=== PATIENT | female | born 1965 | race African-American/Black ===

== ENCOUNTER 2017-05-28 02:34 | Emergency (ER) | payer MEDICAID ==
[~2017-05-28] VITALS: Ht 165.1 cm; Wt 68.0 kg
[~2017-05-28 02:34] MED LIST: ALBU6.7H IH; ATEN-42 PO; ATOR10TA PO; DIGO250T16 PO; FURO-152 PO; HYDR-3927 PO; WARF4TAB39 PO
[2017-05-28 10:18] LABS: BASOPHILS % 1.2 % (0.0-2.0); EOSINOPHILS % 2.2 % (0.0-5.0); HEMATOCRIT. 41.5 % (36.0-48.0); HEMOGLOBIN. 13.3 g/dL (12.0-16.0); LYMPHOCYTES % 41.7 % (20.0-50.0); MEAN CORPUSCULAR HEMOGLOBIN 27.1 pg (28.0-32.0); MEAN CORPUSCULAR VOLUME 84.5 fL (81.0-99.0); MEAN PLATELET VOLUME 8.7 fl (7.4-10.4); MONOCYTES % 11.7 % (2.0-8.0); NEUTROPHILS % 43.2 % (40.0-76.0); PLATELET 211 x1000/uL (130-400); RED BLOOD CELL COUNT 4.91 mill/uL (4.2-5.4)
[2017-05-28 10:27] LABS: INR 1.5; PROTHROMBIN TIME 15.3 sec (9.4-11.6)
[2017-05-28 10:36] LABS: CARBON DIOXIDE 26 mEq/L (21-32); CHLORIDE 109 mEq/L (98-107); TROPONIN I 0.04 ng/mL (0.00-0.04)
[2017-05-28] MEDS ORDERED: IPRATROPIUM BROMIDE (0.02%) 0.5MG/2.5ML NEB HHN STA (10:43)
[2017-05-28] MEDS ORDERED: ACETAMINOPHEN 325MG TABLET PO ONE (12:00)
[2017-05-28] MEDS ORDERED: NITROGLYCERIN 0.4MG TABLET SL SL ONE (13:00)
[2017-05-28] MEDS ORDERED: IBUPROFEN 600MG TABLET PO ONE (13:45)
[2017-05-28 13:55] VITALS: BP 122/76
== END 2017-05-28 14:03 | disposition home or self-care (01) ==
LOC: ER 02:34
DX: J06.9 Acute upper respiratory infection, unspecified (principal); J45.901 Unspecified asthma with (acute) exacerbation; R07.89 Other chest pain; I48.91 Unspecified atrial fibrillation; I50.9 Heart failure, unspecified; Z79.01 Long term (current) use of anticoagulants; Z95.2 Presence of prosthetic heart valve; Z88.6 Allergy status to analgesic agent; Z88.5 Allergy status to narcotic agent; Z88.0 Allergy status to penicillin
CPT/HCPCS: 36415; 71045; 80053; 83690; 83880; 84484; 85025; 85610; 85730; 87804; 93005; 99285; Z7610

== ENCOUNTER 2017-12-27 23:17 | Emergency (ER) | payer MEDICAID ==
[~2017-12-27] VITALS: Ht 167.6 cm; Wt 68.0 kg
[~2017-12-27 23:17] MED LIST changes: -ATEN-42 PO; +DIGO125T82 PO; -DIGO250T16 PO; +WARF-53 PO; -WARF4TAB39 PO
[2017-12-28 01:42] LABS: BASOPHILS % 0.5 % (0.0-2.0); EOSINOPHILS % 0.7 % (0.0-5.0); HEMATOCRIT. 37.2 % (36.0-48.0); HEMOGLOBIN. 11.6 g/dL (12.0-16.0); LYMPHOCYTES % 32.2 % (20.0-50.0); MEAN CORPUSCULAR HEMOGLOBIN 23.6 pg (28.0-32.0); MEAN PLATELET VOLUME 8.2 fl (7.4-10.4); NEUTROPHILS % 52.6 % (40.0-76.0); PLATELET 251 x1000/uL (130-400); RED BLOOD CELL COUNT 4.89 mill/uL (4.2-5.4); RED CELL DISTRIBUTION WIDTH 19.7 % (11.6-14.6)
[2017-12-28 01:47] LABS: CHLORIDE 108 mEq/L (98-107)
[2017-12-28 04:05] VITALS: BP 126/71
== END 2017-12-28 04:34 | disposition home or self-care (01) ==
LOC: ER 12-28 03:01
DX: R07.9 Chest pain, unspecified (principal); M54.2 Cervicalgia; J45.909 Unspecified asthma, uncomplicated; I51.9 Heart disease, unspecified; Z88.5 Allergy status to narcotic agent; Z88.1 Allergy status to other antibiotic agents; Z88.8 Allergy status to other drugs, medicaments and biological substances
CPT/HCPCS: 36415; 71045; 80053; 83880; 84484; 85025; 93005; 99285; Z7610

== ENCOUNTER 2018-04-14 00:47 | Inpatient (IN) | payer MEDICAID ==
[~2018-04-14] VITALS: Ht 167.6 cm; Wt 68.0 kg
[2018-04-14] MEDS ORDERED: METHYLPREDNISOLONE SOD SUCC 125 MG/2 ML VIAL IV STA (01:36)
[2018-04-14] MEDS ORDERED: IPRATROPIUM/ALBUTEROL 0.5-3(2.5)MG/3ML NEB HHN ONE (01:45)
[2018-04-14] MEDS ORDERED: LEVOFLOXACIN 750MG PREMIX 150 ML IV ONE (01:45)
[2018-04-14] MEDS ORDERED: MAGNESIUM 2 G PREMIX 50 ML IV ONE (01:45)
[2018-04-14 04:05] LABS: BASOPHILS % 0.8 % (0.0-2.0); EOSINOPHILS % 0.2 % (0.0-5.0); HEMOGLOBIN. 10.9 g/dL (12.0-16.0); LYMPHOCYTES % 33.2 % (20.0-50.0); MEAN CORPUSCULAR HEMOGLOBIN 24.7 pg (28.0-32.0); MEAN CORPUSCULAR VOLUME 79.3 fL (81.0-99.0); MEAN PLATELET VOLUME 8.6 fl (7.4-10.4); MONOCYTES % 12.7 % (2.0-8.0); NEUTROPHILS % 53.1 % (40.0-76.0); PLATELET 232 x1000/uL (130-400); RED BLOOD CELL COUNT 4.42 mill/uL (4.2-5.4)
[2018-04-14 04:06] LABS: CHLORIDE 101 mEq/L (98-107)
[2018-04-14 04:10] LABS: ETHANOL BLOOD < 10 mg/dL
[2018-04-14 04:22] LABS: INR 3.1; PARTIAL THROMBOPLASTIN TIME 33.9 sec (23.4-31.0); PROTHROMBIN TIME 30.4 sec (9.1-11.1)
[2018-04-14] MEDS ORDERED: FUROSEMIDE 20MG/2ML VIAL IVP ONE (05:00)
[2018-04-14] MEDS ORDERED: ASPIRIN 325MG EC TABLET PO ONE (05:00)
[2018-04-14] MEDS ORDERED: IPRATROPIUM/ALBUTEROL 0.5-3(2.5)MG/3ML NEB HHN PRN (10:00)
[2018-04-14 10:33] LABS: CREATINE KINASE MB FRACTION 8.6 ng/mL (0.5-3.6)
[2018-04-14] MEDS: IPRATROPIUM/ALBUTEROL 0.5-3(2.5)MG/3ML NEB HHN SCH (14:00)
[2018-04-14] MEDS: METHYLPREDNISOLONE SOD SUCC 40 MG/ML VIAL IV SCH ×2 (14:17→22:33)
[2018-04-14] MEDS ORDERED: POTASSIUM CHLORIDE 20MEQ TABLET SR PO NR (14:45)
[2018-04-14] MEDS: FUROSEMIDE 40MG/4ML VIAL IVP SCH (19:00)
[2018-04-14] MEDS ORDERED: ACETAMINOPHEN 325MG TABLET ONE (19:08)
[2018-04-14] MEDS ORDERED: ACETAMINOPHEN 325MG TABLET PO PRN (19:15)
[2018-04-14 21:45] VITALS: BP 130/94
[2018-04-14] MEDS: GUAIFENESIN 600MG ER TABLET PO SCH (22:33)
[2018-04-14] MEDS: ATORVASTATIN CALCIUM 10MG TABLET PO SCH (22:33)
[2018-04-14] MEDS ORDERED: ASPI-1159 PO (23:11)
[2018-04-15] VITALS: BP 108/91
[2018-04-15] MEDS ORDERED: DIGOXIN 500MCG/2ML AMP IV NR ×2 (00:15→12:00)
[2018-04-15] MEDS: IPRATROPIUM/ALBUTEROL 0.5-3(2.5)MG/3ML NEB HHN SCH ×3 (01:21→09:09)
[2018-04-15 04:00] VITALS: BP 117/62
[2018-04-15] MEDS: METHYLPREDNISOLONE SOD SUCC 40 MG/ML VIAL IV SCH (06:16)
[2018-04-15 08:12] LABS: BASOPHILS % 0.1 % (0.0-2.0); HEMATOCRIT. 33.7 % (36.0-48.0); HEMOGLOBIN. 10.7 g/dL (12.0-16.0); LYMPHOCYTES % 10.5 % (20.0-50.0); MEAN CORPUSCULAR HEMOGLOBIN 24.7 pg (28.0-32.0); MEAN CORPUSCULAR VOLUME 78.1 fL (81.0-99.0); MONOCYTES % 5.5 % (2.0-8.0); NEUTROPHILS % 83.9 % (40.0-76.0); PLATELET 198 x1000/uL (130-400); RED BLOOD CELL COUNT 4.31 mill/uL (4.2-5.4)
[2018-04-15 08:16] LABS: INR 3.1; PROTHROMBIN TIME 30.8 sec (9.1-11.1)
[2018-04-15 08:50] LABS: CHLORIDE 104 mEq/L (98-107)
[2018-04-15] MEDS: FUROSEMIDE 40MG/4ML VIAL IVP SCH ×2 (09:00→18:04)
[2018-04-15] MEDS: POTASSIUM CHLORIDE 20MEQ TABLET SR PO SCH ×2 (09:59→18:05)
[2018-04-15] MEDS: GUAIFENESIN 600MG ER TABLET PO SCH ×2 (09:59→22:24)
[2018-04-15] MEDS: LORATADINE 10MG TABLET PO SCH (12:25)
[2018-04-15] MEDS: FAMOTIDINE 20MG TABLET PO SCH ×2 (12:25→22:24)
[2018-04-15] MEDS: METOPROLOL TARTRATE 25MG TABLET PO SCH ×2 (12:26→21:00)
[2018-04-15] MEDS: IPRATROPIUM BROMIDE (0.02%) 0.5MG/2.5ML NEB HHN SCH ×3 (13:02→21:00)
[2018-04-15] MEDS ORDERED: DIGOXIN 500MCG/2ML AMP IV PRN (15:00)
[2018-04-15] MEDS ORDERED: PREDNISONE 20MG TABLET PO SCH (17:00)
[2018-04-15] MEDS ORDERED: WARFARIN SODIUM 2.5MG TABLET PO SCH (18:00)
[2018-04-15] MEDS: DIGOXIN 250MCG TABLET PO SCH (18:08)
[2018-04-15 20:00] VITALS: BP 106/67
[2018-04-15] MEDS: ATORVASTATIN CALCIUM 10MG TABLET PO SCH (21:00)
[2018-04-16] VITALS: BP 125/93
[2018-04-16 04:00] VITALS: BP 118/88
[2018-04-16] MEDS: IPRATROPIUM BROMIDE (0.02%) 0.5MG/2.5ML NEB HHN SCH ×5 (04:44→20:42)
[2018-04-16 07:30] LABS: INR 2.8
[2018-04-16 07:37] LABS: HEMATOCRIT. 35.7 % (36.0-48.0); HEMOGLOBIN. 11.3 g/dL (12.0-16.0); MEAN CORPUSCULAR VOLUME 78.7 fL (81.0-99.0); PLATELET 203 x1000/uL (130-400); RED BLOOD CELL COUNT 4.54 mill/uL (4.2-5.4); RED CELL DISTRIBUTION WIDTH 20.2 % (11.6-14.6)
[2018-04-16 07:53] LABS: CHLORIDE 102 mEq/L (98-107)
[2018-04-16 08:00] VITALS: BP 135/91
[2018-04-16] MEDS: POTASSIUM CHLORIDE 20MEQ TABLET SR PO SCH ×2 (08:23→17:37)
[2018-04-16] MEDS: GUAIFENESIN 600MG ER TABLET PO SCH ×2 (08:23→20:48)
[2018-04-16] MEDS: LORATADINE 10MG TABLET PO SCH (08:23)
[2018-04-16] MEDS: FAMOTIDINE 20MG TABLET PO SCH ×2 (08:23→20:48)
[2018-04-16] MEDS: METHYLPREDNISOLONE SOD SUCC 40 MG/ML VIAL IV SCH (08:24)
[2018-04-16] MEDS: METOPROLOL TARTRATE 25MG TABLET PO SCH ×2 (09:00→20:51)
[2018-04-16] MEDS: FUROSEMIDE 40MG/4ML VIAL IVP SCH ×2 (09:00→17:37)
[2018-04-16 12:00] VITALS: BP 130/95
[2018-04-16 14:08] LABS: PLATELET ESTIMATE NORMAL
[2018-04-16 16:00] VITALS: BP 110/65
[2018-04-16] MEDS: DIGOXIN 250MCG TABLET PO SCH (17:38)
[2018-04-16] MEDS ORDERED: WARFARIN SODIUM 3MG TABLET PO NR (18:00)
[2018-04-16 20:00] VITALS: BP 118/56
[2018-04-16] MEDS: ATORVASTATIN CALCIUM 10MG TABLET PO SCH (20:48)
[2018-04-17] MEDS: IPRATROPIUM BROMIDE (0.02%) 0.5MG/2.5ML NEB HHN SCH ×5 (00:43→16:52)
[2018-04-17 04:00] VITALS: BP 122/83
[2018-04-17 06:53] LABS: INR 3.1; PROTHROMBIN TIME 30.5 sec (9.1-11.1)
[2018-04-17 07:11] LABS: CHLORIDE 100 mEq/L (98-107)
[2018-04-17 08:00] VITALS: BP 130/75
[2018-04-17] MEDS: METHYLPREDNISOLONE SOD SUCC 40 MG/ML VIAL IV SCH (08:05)
[2018-04-17] MEDS: FUROSEMIDE 40MG/4ML VIAL IVP SCH (08:05)
[2018-04-17] MEDS: POTASSIUM CHLORIDE 20MEQ TABLET SR PO SCH (08:06)
[2018-04-17] MEDS: GUAIFENESIN 600MG ER TABLET PO SCH (08:06)
[2018-04-17] MEDS: FAMOTIDINE 20MG TABLET PO SCH (08:06)
[2018-04-17] MEDS: LORATADINE 10MG TABLET PO SCH (08:06)
[2018-04-17] MEDS: METOPROLOL TARTRATE 25MG TABLET PO SCH (08:16)
[2018-04-17 15:52] VITALS: BP 120/80
[2018-04-17 16:00] VITALS: BP 125/81
== END 2018-04-17 17:35 | disposition home or self-care (01) | DRG 133 ==
LOC: ER 01:56 → 7WST 05:00 → EDBEDREQ 05:01 → EDBEDREQTM 05:01 → ENRESERV 19:26 → 7WST 23:35
PROVIDERS: ADMIT Internal Medicine; ATTEND Internal Medicine
DX: J96.00 Acute respiratory failure, unspecified whether with hypoxia or hypercapnia (principal); I50.23 Acute on chronic systolic (congestive) heart failure; I27.20 Pulmonary hypertension, unspecified; I42.9 Cardiomyopathy, unspecified; J45.901 Unspecified asthma with (acute) exacerbation; I48.2 Chronic atrial fibrillation; I11.0 Hypertensive heart disease with heart failure; M62.82 Rhabdomyolysis; D64.9 Anemia, unspecified; E87.6 Hypokalemia; J06.9 Acute upper respiratory infection, unspecified; E78.00 Pure hypercholesterolemia, unspecified; F12.90 Cannabis use, unspecified, uncomplicated; R74.0 Nonspecific elevation of levels of transaminase and lactic acid dehydrogenase [LDH]; Z79.01 Long term (current) use of anticoagulants; Z82.49 Family history of ischemic heart disease and other diseases of the circulatory system; Z95.2 Presence of prosthetic heart valve; Z98.891 History of uterine scar from previous surgery; Z88.5 Allergy status to narcotic agent; Z88.1 Allergy status to other antibiotic agents; Z88.8 Allergy status to other drugs, medicaments and biological substances; Z79.899 Other long term (current) drug therapy; M94.0 Chondrocostal junction syndrome [Tietze]
CPT/HCPCS: 36415; 71045; 80048; 80061; 80162; 82550; 82553; 83036; 83735; 83880; 84443; 84484; 93005; 93306; 93970; 94640; 96365; 96366; 96375; 96376; 99285; C1893; G0482; J1160; J1940; J1956; J2920; J2930; J3475; J7620

== ENCOUNTER 2018-05-20 15:19 | Inpatient (IN) | payer MEDICAID ==
[~2018-05-20] VITALS: Ht 167.6 cm; Wt 75.0 kg
[~2018-05-20 15:19] MED LIST changes: +ASPI-1159 PO
[2018-05-20] MEDS ORDERED: HYDROCODONE/ACETAMINOPHEN 5/325MG TABLET PO ONE (19:00)
[2018-05-20 19:29] LABS: BASOPHILS % 0.8 % (0.0-2.0); EOSINOPHILS % 0.3 % (0.0-5.0); HEMATOCRIT. 37.1 % (36.0-48.0); HEMOGLOBIN. 11.4 g/dL (12.0-16.0); LYMPHOCYTES % 22.1 % (20.0-50.0); MEAN CORPUSCULAR HEMOGLOBIN 24.6 pg (28.0-32.0); MEAN CORPUSCULAR VOLUME 79.5 fL (81.0-99.0); MEAN PLATELET VOLUME 8.2 fl (7.4-10.4); MONOCYTES % 9.8 % (2.0-8.0); PLATELET 233 x1000/uL (130-400); RED BLOOD CELL COUNT 4.66 mill/uL (4.2-5.4); RED CELL DISTRIBUTION WIDTH 20.5 % (11.6-14.6)
[2018-05-20 19:31] LABS: CHLORIDE 109 mEq/L (98-107)
[2018-05-20 19:44] LABS: T4 FREE 0.85 ng/dL (0.76-1.46)
[2018-05-20 20:20] LABS: D-DIMER 1.06 mg/L FEU (<0.50); INR 2.4; PARTIAL THROMBOPLASTIN TIME 35.2 sec (23.4-31.0); PROTHROMBIN TIME 23.3 sec (9.1-11.1)
[2018-05-20] MEDS ORDERED: CLONIDINE 0.1MG TABLET PO PRN (23:30)
[2018-05-20] MEDS ORDERED: HYDROCODONE/ACETAMINOPHEN 5/325MG TABLET PO PRN (23:30)
[2018-05-20] MEDS ORDERED: ONDANSETRON HCL 4MG/2ML INJ IV PRN (23:30)
[2018-05-20] MEDS ORDERED: DOCUSATE SODIUM 100MG CAPSULE PO PRN (23:30)
[2018-05-20] MEDS ORDERED: IPRATROPIUM/ALBUTEROL 0.5-3(2.5)MG/3ML NEB INH PRN (23:30)
[2018-05-20] MEDS ORDERED: ACETAMINOPHEN 325MG TABLET PO PRN (23:30)
[2018-05-21 01:15] LABS: CHLORIDE 109 mEq/L (98-107)
[2018-05-21 02:14] VITALS: BP 105/69
[2018-05-21] MEDS ORDERED: [UNRECOGNIZED DRUG - CODE] PO (03:49)
[2018-05-21 04:00] VITALS: BP 90/55
[2018-05-21 08:21] VITALS: BP 93/74
[2018-05-21 09:27] LABS: BASOPHILS % 1.3 % (0.0-2.0); EOSINOPHILS % 0.9 % (0.0-5.0); HEMATOCRIT. 35.5 % (36.0-48.0); HEMOGLOBIN. 11.2 g/dL (12.0-16.0); LYMPHOCYTES % 32.7 % (20.0-50.0); MEAN CORPUSCULAR VOLUME 79.5 fL (81.0-99.0); MONOCYTES % 13.7 % (2.0-8.0); NEUTROPHILS % 51.4 % (40.0-76.0); PLATELET 207 x1000/uL (130-400); RED BLOOD CELL COUNT 4.47 mill/uL (4.2-5.4); RED CELL DISTRIBUTION WIDTH 20.7 % (11.6-14.6)
[2018-05-21 09:47] LABS: LDL CHOLESTEROL 81 mg/dL (5-100)
[2018-05-21 09:48] LABS: CREATINE KINASE 76 IU/L (26-192)
[2018-05-21 09:50] LABS: HDL CHOLESTEROL 38 mg/dL (40-59)
[2018-05-21 09:51] LABS: CREATINE KINASE MB FRACTION < 1.0 ng/mL (0.5-3.6)
[2018-05-21 12:08] VITALS: BP 110/67
[2018-05-21] MEDS ORDERED: FUROSEMIDE 40MG TABLET PO SCH (12:30)
[2018-05-21] MEDS ORDERED: ASPIRIN 81MG TABLET PO SCH (12:30)
[2018-05-21] MEDS: PANTOPRAZOLE 40MG DR TABLET PO SCH (13:18)
[2018-05-21] MEDS: ASPIRIN 81MG EC TABLET PO SCH (13:19)
[2018-05-21 14:50] LABS: TOTAL IRON BINDING CAPACITY 464 ug/dL (250-450)
[2018-05-21 15:10] LABS: FOLIC ACID (FOLATE) SERUM 12.2 ng/mL (>5.38)
[2018-05-21 15:40] VITALS: BP 99/76
[2018-05-21] MEDS: DIGOXIN 125MCG TABLET PO SCH (17:50)
[2018-05-21] MEDS ORDERED: WARFARIN SODIUM 5MG TABLET PO SCH (18:00)
[2018-05-21 20:11] VITALS: BP_SYST 108; BP_SYST 114; BP_SYST 92; BP_DIAS 46; BP_DIAS 72; BP_DIAS 74
[2018-05-21] MEDS ORDERED: ATORVASTATIN CALCIUM 10MG TABLET PO SCH (21:00)
[2018-05-21] MEDS: ATORVASTATIN CALCIUM 10MG TABLET PO SCH (21:37)
[2018-05-22] VITALS: BP 105/62
[2018-05-22] MEDS ORDERED: ONDANSETRON HCL 4MG/2ML INJ IV PRN (03:45)
[2018-05-22] MEDS: PANTOPRAZOLE 40MG DR TABLET PO SCH (06:24)
[2018-05-22 07:52] LABS: CLARITY URINE CLEAR (CLEAR); COLOR URINE YELLOW (YELLOW); KETONES URINE NEGATIVE (NEGATIVE); LEUKOCYTE ESTERASE URINE 1+ (NEGATIVE); NITRITE URINE NEGATIVE (NEGATIVE); OCCULT BLOOD URINE NEGATIVE (NEGATIVE); PROTEIN URINE NEGATIVE (NEGATIVE); SPECIFIC GRAVITY URINE 1.015 (1.005-1.030); UROBILINOGEN URINE 0.2 E.U./dL (0.2-1.0)
[2018-05-22 08:00] VITALS: BP_SYST 106; BP_SYST 109; BP_SYST 97; BP_DIAS 61; BP_DIAS 65; BP_DIAS 66
[2018-05-22 08:05] LABS: *AMPHETAMINES SCREEN URINE NEGATIVE (NEGATIVE); *BARBITURATES SCREEN URINE NEGATIVE (NEGATIVE)
[2018-05-22 08:06] LABS: *BENZODIAZEPINES SCREEN URINE NEGATIVE (NEGATIVE); *COCAINE SCREEN URINE NEGATIVE (NEGATIVE); CANNABINOID URINE SCREEN PRESUMTIVE POSITIVE (NEGATIVE); METHADONE URINE SCREEN NEGATIVE (NEGATIVE); OPIATES URINE SCREEN NEGATIVE (NEGATIVE); PHENCYCLIDINE URINE SCREEN NEGATIVE (NEGATIVE)
[2018-05-22] MEDS: ASPIRIN 81MG EC TABLET PO SCH (08:35)
[2018-05-22 12:00] VITALS: BP 117/69
[2018-05-22] MEDS: FERROUS SULFATE 325MG TABLET PO SCH ×2 (13:34→18:03)
[2018-05-22] MEDS: DOCUSATE SODIUM 100MG CAPSULE PO SCH (13:34)
[2018-05-22] MEDS: DEXT 5%/0.45% NACL 1000ML 1,000 ML IV SCH (13:34)
[2018-05-22 16:00] VITALS: BP 96/67
[2018-05-22 16:36] LABS: CHLORIDE 107 mEq/L (98-107)
[2018-05-22 16:38] LABS: INR 2.6; PROTHROMBIN TIME 25.4 sec (9.1-11.1)
[2018-05-22 16:56] LABS: EOSINOPHILS % 1.3 % (0.0-5.0); HEMATOCRIT. 33.4 % (36.0-48.0); HEMOGLOBIN. 10.3 g/dL (12.0-16.0); LYMPHOCYTES % 29.7 % (20.0-50.0); MEAN CORPUSCULAR HEMOGLOBIN 24.7 pg (28.0-32.0); MEAN CORPUSCULAR VOLUME 79.8 fL (81.0-99.0); MEAN PLATELET VOLUME 8.3 fl (7.4-10.4); PLATELET 200 x1000/uL (130-400); RED BLOOD CELL COUNT 4.19 mill/uL (4.2-5.4); RED CELL DISTRIBUTION WIDTH 20.7 % (11.6-14.6)
[2018-05-22 17:00] LABS: DIGOXIN 0.2 ng/mL (0.9-2.0)
[2018-05-22] MEDS ORDERED: WARFARIN SODIUM 5MG TABLET PO SCH (18:00)
[2018-05-22] MEDS: DIGOXIN 125MCG TABLET PO SCH (18:03)
[2018-05-22] MEDS ORDERED: FERR325T23 PO (18:48)
[2018-05-22] MEDS ORDERED: DOCU-138 PO (18:48)
[2018-05-22] MEDS ORDERED: PANT40TA4 PO (18:48)
[2018-05-22 20:00] VITALS: BP_SYST 100; BP_SYST 104; BP_DIAS 38; BP_DIAS 60; BP_DIAS 62
[2018-05-22] MEDS: ATORVASTATIN CALCIUM 10MG TABLET PO SCH (21:06)
[2018-05-22] MEDS ORDERED: HYDROCODONE/ACETAMINOPHEN 5/325MG TABLET PO PRN (22:30)
[2018-05-23] VITALS: BP 112/64
[2018-05-23 04:00] VITALS: BP 106/47
[2018-05-23] MEDS: DEXT 5%/0.45% NACL 1000ML 1,000 ML IV SCH (04:47)
[2018-05-23] MEDS: FERROUS SULFATE 325MG TABLET PO SCH ×2 (07:57→12:47)
[2018-05-23] MEDS: PANTOPRAZOLE 40MG DR TABLET PO SCH (07:57)
[2018-05-23 08:00] VITALS: BP_SYST 100; BP_SYST 117; BP_SYST 94; BP_DIAS 58; BP_DIAS 64; BP_DIAS 67
[2018-05-23] MEDS: DOCUSATE SODIUM 100MG CAPSULE PO SCH (08:16)
[2018-05-23] MEDS: ASPIRIN 81MG EC TABLET PO SCH (08:16)
[2018-05-23 17:18] VITALS: BP 108/75
[2018-05-23] MEDS ORDERED: WARFARIN SODIUM 5MG TABLET PO SCH (18:00)
== END 2018-05-23 17:59 | disposition home or self-care (01) | DRG 48 ==
LOC: ER 18:26 → 6WST 19:47 → EDBEDREQ 19:52 → EDBEDREQTM 19:52 → CANBEDREQ 19:54 → ENRESERV 05-21 01:35 → ER 05-21 02:28
PROVIDERS: ADMIT Internal Medicine; ATTEND Internal Medicine
PROC: 4A00X4Z Measurement of Central Nervous Electrical Activity, External Approach (ICD-10-PCS; principal; 2018-05-23)
DX: G90.8 Other disorders of autonomic nervous system (principal); I11.0 Hypertensive heart disease with heart failure; D68.59 Other primary thrombophilia; E87.8 Other disorders of electrolyte and fluid balance, not elsewhere classified; I95.9 Hypotension, unspecified; I50.32 Chronic diastolic (congestive) heart failure; E44.1 Mild protein-calorie malnutrition; M94.0 Chondrocostal junction syndrome [Tietze]; I27.21 Secondary pulmonary arterial hypertension; I48.1 Persistent atrial fibrillation; E86.0 Dehydration; I05.0 Rheumatic mitral stenosis; K21.9 Gastro-esophageal reflux disease without esophagitis; I48.92 Unspecified atrial flutter; E78.5 Hyperlipidemia, unspecified; J45.909 Unspecified asthma, uncomplicated; K27.9 Peptic ulcer, site unspecified, unspecified as acute or chronic, without hemorrhage or perforation; D50.9 Iron deficiency anemia, unspecified; Z98.891 History of uterine scar from previous surgery; Z95.2 Presence of prosthetic heart valve; Z88.8 Allergy status to other drugs, medicaments and biological substances; Z88.1 Allergy status to other antibiotic agents; Z88.5 Allergy status to narcotic agent; Z79.82 Long term (current) use of aspirin; Z79.51 Long term (current) use of inhaled steroids; Z79.01 Long term (current) use of anticoagulants; Z79.899 Other long term (current) drug therapy; Z79.1 Long term (current) use of non-steroidal anti-inflammatories (NSAID); Z87.11 Personal history of peptic ulcer disease; Z82.49 Family history of ischemic heart disease and other diseases of the circulatory system
CPT/HCPCS: 36415; 71045; 72220; 80048; 80061; 80162; 80305; 82550; 82553; 82607; 82728; 82746; 83540; 83550; 83735; 83880; 84439; 84443; 84484; 85379; 93005; 93306; 93880; 93970; 94640; 97162; 97166; 99285; C1893; G0482; J2405; J3490

== ENCOUNTER 2018-09-18 15:27 | Inpatient (IN) | payer MEDICAID ==
[~2018-09-18] VITALS: Ht 167.6 cm; Wt 80.7 kg
[~2018-09-18 15:27] MED LIST changes: -FURO-152 PO; +[UNRECOGNIZED DRUG - CODE] PO
[2018-09-18] MEDS ORDERED: IPRATROPIUM BROMIDE (0.02%) 0.5MG/2.5ML NEB HHN STA (16:10)
[2018-09-18] MEDS ORDERED: AZITHROMYCIN 500 MG TABLET PO ONE (16:15)
[2018-09-18] MEDS ORDERED: FUROSEMIDE 40MG/4ML VIAL IV ONE (16:15)
[2018-09-18] MEDS ORDERED: ASPIRIN 81MG TABLET PO ONE (16:15)
[2018-09-18] MEDS ORDERED: METHYLPREDNISOLONE SOD SUCC 125 MG/2 ML VIAL IV ONE (16:15)
[2018-09-18] MEDS ORDERED: CEFTRIAXONE 1 G PREMIX 50 ML IV ONE (16:15)
[2018-09-18] MEDS: ALBUTEROL (0.083%) 2.5MG/3ML NEB HHN SCH ×3 (16:20→17:10)
[2018-09-18 16:33] LABS: EOSINOPHILS % 2.3 % (0.0-5.0); HEMATOCRIT. 33.8 % (36.0-48.0); HEMOGLOBIN. 10.4 g/dL (12.0-16.0); LYMPHOCYTES % 32.7 % (20.0-50.0); MEAN CORPUSCULAR HEMOGLOBIN 23.3 pg (28.0-32.0); MEAN CORPUSCULAR VOLUME 75.5 fL (81.0-99.0); MONOCYTES % 13.2 % (2.0-8.0); NEUTROPHILS % 49.8 % (40.0-76.0); PLATELET 314 x1000/uL (130-400); RED BLOOD CELL COUNT 4.48 mill/uL (4.2-5.4); RED CELL DISTRIBUTION WIDTH 20.5 % (11.6-14.6)
[2018-09-18 16:36] LABS: CHLORIDE 105 mEq/L (98-107)
[2018-09-18 16:41] LABS: INR 3.6; PROTHROMBIN TIME 34.5 sec (9.6-11.0)
[2018-09-18 16:48] LABS: HCG SCREEN NEGATIVE
[2018-09-18] MEDS ORDERED: ONDANSETRON HCL 4MG/2ML INJ IV PRN (20:30)
[2018-09-18 21:50] VITALS: BP 120/69
[2018-09-18] MEDS ORDERED: POTASSIUM CHLORIDE 20MEQ TABLET SR PO NR (22:15)
[2018-09-18 22:40] VITALS: BP 120/69
[2018-09-18] MEDS: METHYLPREDNISOLONE SOD SUCC 40 MG/ML VIAL IV SCH (23:29)
[2018-09-19] VITALS: BP 119/59
[2018-09-19] MEDS ORDERED: NITR0.4T49 SL ×2 (00:13)
[2018-09-19] MEDS ORDERED: PANT40TA4 PO (00:13)
[2018-09-19] MEDS ORDERED: DIGO250T81 PO (00:13)
[2018-09-19] MEDS ORDERED: ATOR40TA70 PO (00:13)
[2018-09-19] MEDS ORDERED: FURO40TA5 PO (00:13)
[2018-09-19 00:14] LABS: CLARITY URINE CLEAR (CLEAR); COLOR URINE YELLOW (YELLOW); KETONES URINE NEGATIVE (NEGATIVE); LEUKOCYTE ESTERASE URINE NEGATIVE (NEGATIVE); NITRITE URINE NEGATIVE (NEGATIVE); OCCULT BLOOD URINE NEGATIVE (NEGATIVE); PH URINE 5.5 (4.5-8.0); PROTEIN URINE 2+ (NEGATIVE); SPECIFIC GRAVITY URINE 1.016 (1.005-1.030); UROBILINOGEN URINE 0.2 E.U./dL (0.2-1.0)
[2018-09-19 00:31] LABS: *AMPHETAMINES SCREEN URINE NEGATIVE (NEGATIVE)
[2018-09-19 00:32] LABS: *BARBITURATES SCREEN URINE NEGATIVE (NEGATIVE); *BENZODIAZEPINES SCREEN URINE NEGATIVE (NEGATIVE); *COCAINE SCREEN URINE NEGATIVE (NEGATIVE); METHADONE URINE SCREEN NEGATIVE (NEGATIVE); OPIATES URINE SCREEN NEGATIVE (NEGATIVE)
[2018-09-19 00:33] LABS: CANNABINOID URINE SCREEN PRESUMTIVE POSITIVE (NEGATIVE); PHENCYCLIDINE URINE SCREEN NEGATIVE (NEGATIVE)
[2018-09-19] MEDS: IPRATROPIUM/ALBUTEROL 0.5-3(2.5)MG/3ML NEB HHN SCH ×3 (00:55→07:55)
[2018-09-19 04:00] VITALS: BP 114/57
[2018-09-19 06:24] LABS: BASOPHILS % 0.2 % (0.0-2.0); HEMATOCRIT. 32.1 % (36.0-48.0); LYMPHOCYTES % 8.8 % (20.0-50.0); MEAN CORPUSCULAR HEMOGLOBIN 23.3 pg (28.0-32.0); MEAN CORPUSCULAR VOLUME 74.9 fL (81.0-99.0); MEAN PLATELET VOLUME 7.9 fl (7.4-10.4); MONOCYTES % 3.9 % (2.0-8.0); NEUTROPHILS % 87.1 % (40.0-76.0); PLATELET 269 x1000/uL (130-400); RED BLOOD CELL COUNT 4.29 mill/uL (4.2-5.4); RED CELL DISTRIBUTION WIDTH 20.6 % (11.6-14.6)
[2018-09-19] MEDS: METHYLPREDNISOLONE SOD SUCC 40 MG/ML VIAL IV SCH (06:46)
[2018-09-19 06:53] LABS: INR 3.4; PROTHROMBIN TIME 32.8 sec (9.6-11.0)
[2018-09-19 07:01] LABS: CHLORIDE 103 mEq/L (98-107)
[2018-09-19] MEDS: POTASSIUM CHLORIDE 20MEQ TABLET SR PO SCH (09:09)
[2018-09-19] MEDS: FUROSEMIDE 40MG/4ML VIAL IVP SCH (09:10)
[2018-09-19] MEDS ORDERED: DIGOXIN 500MCG/2ML AMP IV NR (10:15)
[2018-09-19] MEDS: DILTIAZEM HCL 60MG TABLET PO SCH ×3 (10:44→20:56)
[2018-09-19 12:00] VITALS: BP 132/87
[2018-09-19] MEDS: BUDESONIDE 0.5MG/2ML NEB HHN SCH ×2 (12:03→21:08)
[2018-09-19] MEDS: IPRATROPIUM/ALBUTEROL 0.5-3(2.5)MG/3ML NEB HHN PRN ×2 (12:04→21:11)
[2018-09-19] MEDS: DIGOXIN 500MCG/2ML AMP IV NR ×2 (12:52→13:43)
[2018-09-19] MEDS: FAMOTIDINE 20MG/2ML VIAL IV SCH ×2 (14:59→20:55)
[2018-09-19 16:00] VITALS: BP 107/70
[2018-09-19] MEDS: DIGOXIN 500MCG/2ML AMP IV SCH (17:58)
[2018-09-19] MEDS: MONTELUKAST SODIUM 10MG TABLET PO SCH (17:58)
[2018-09-19 20:30] VITALS: BP 109/61
[2018-09-19] MEDS: LORATADINE 10MG TABLET PO SCH (20:55)
[2018-09-19] MEDS ORDERED: FAMOTIDINE 20MG/2ML VIAL IV SCH (21:00)
[2018-09-20] VITALS: BP 104/50
[2018-09-20] MEDS: IPRATROPIUM/ALBUTEROL 0.5-3(2.5)MG/3ML NEB HHN PRN ×5 (02:27→20:56)
[2018-09-20 04:00] VITALS: BP 104/63
[2018-09-20] MEDS: ACETAMINOPHEN 325MG TABLET PO PRN ×2 (04:21→15:51)
[2018-09-20] MEDS: DILTIAZEM HCL 60MG TABLET PO SCH ×3 (06:00→22:00)
[2018-09-20 06:11] LABS: BASOPHILS % 0.4 % (0.0-2.0); HEMATOCRIT. 31.6 % (36.0-48.0); HEMOGLOBIN. 9.7 g/dL (12.0-16.0); LYMPHOCYTES % 18.4 % (20.0-50.0); MEAN CORPUSCULAR HEMOGLOBIN 22.9 pg (28.0-32.0); MEAN CORPUSCULAR VOLUME 74.9 fL (81.0-99.0); MEAN PLATELET VOLUME 8.2 fl (7.4-10.4); MONOCYTES % 9.6 % (2.0-8.0); NEUTROPHILS % 71.6 % (40.0-76.0); PLATELET 272 x1000/uL (130-400); RED BLOOD CELL COUNT 4.23 mill/uL (4.2-5.4)
[2018-09-20 06:12] LABS: INR 3.4; PROTHROMBIN TIME 33.1 sec (9.6-11.0)
[2018-09-20 06:30] LABS: CHLORIDE 104 mEq/L (98-107)
[2018-09-20] MEDS: BUDESONIDE 0.5MG/2ML NEB HHN SCH ×2 (07:38→20:56)
[2018-09-20] MEDS: POTASSIUM CHLORIDE 20MEQ TABLET SR PO SCH (08:18)
[2018-09-20] MEDS: FUROSEMIDE 40MG/4ML VIAL IVP SCH (08:18)
[2018-09-20] MEDS: FAMOTIDINE 20MG/2ML VIAL IV SCH (08:18)
[2018-09-20] MEDS ORDERED: HYDROCODONE/ACETAMINOPHEN 10/325MG TABLET PO PRN (11:00)
[2018-09-20 12:00] VITALS: BP 104/60
[2018-09-20] MEDS ORDERED: THROAT LOZENGES-BENZOCAINE/MENTH/CETYLPYRD CL LOZENGES MM PRN (13:00)
[2018-09-20] MEDS ORDERED: DILT60TA35 PO (14:16)
[2018-09-20] MEDS ORDERED: CLAR10 PO (14:16)
[2018-09-20] MEDS ORDERED: FLUT1AER IH (14:16)
[2018-09-20] MEDS ORDERED: MONT10TA21 MT (14:16)
[2018-09-20] MEDS ORDERED: MONT10TA21 PO (14:16)
[2018-09-20] MEDS ORDERED: ALBU18HF2 IH (14:16)
[2018-09-20] MEDS: MONTELUKAST SODIUM 10MG TABLET PO SCH (17:39)
[2018-09-20] MEDS: DIGOXIN 500MCG/2ML AMP IV SCH (17:39)
[2018-09-20 20:00] VITALS: BP 112/60
[2018-09-20] MEDS: LORATADINE 10MG TABLET PO SCH (21:42)
[2018-09-21] VITALS: BP 125/85
[2018-09-21 04:00] VITALS: BP 118/62
[2018-09-21] MEDS: DILTIAZEM HCL 60MG TABLET PO SCH (06:27)
[2018-09-21] MEDS ORDERED: PANTOPRAZOLE 40MG DR TABLET PO SCH (06:45)
[2018-09-21 07:21] LABS: INR 1.9; PROTHROMBIN TIME 18.7 sec (9.6-11.0)
[2018-09-21 07:33] LABS: BASOPHILS % 0.9 % (0.0-2.0); EOSINOPHILS % 0.3 % (0.0-5.0); HEMATOCRIT. 32.5 % (36.0-48.0); HEMOGLOBIN. 10.2 g/dL (12.0-16.0); MEAN CORPUSCULAR HEMOGLOBIN 23.4 pg (28.0-32.0); MEAN CORPUSCULAR VOLUME 74.8 fL (81.0-99.0); MEAN PLATELET VOLUME 8.2 fl (7.4-10.4); MONOCYTES % 10.2 % (2.0-8.0); NEUTROPHILS % 48.6 % (40.0-76.0); PLATELET 274 x1000/uL (130-400); RED BLOOD CELL COUNT 4.35 mill/uL (4.2-5.4); RED CELL DISTRIBUTION WIDTH 21.4 % (11.6-14.6)
[2018-09-21 07:37] LABS: CHLORIDE 102 mEq/L (98-107)
[2018-09-21 08:00] VITALS: BP 125/68
[2018-09-21] MEDS: BUDESONIDE 0.5MG/2ML NEB HHN SCH (08:26)
[2018-09-21] MEDS: ACETAMINOPHEN 325MG TABLET PO PRN (10:36)
[2018-09-21] MEDS: FUROSEMIDE 40MG/4ML VIAL IVP SCH (10:36)
[2018-09-21 12:00] VITALS: BP 118/77
[2018-09-21 17:37] VITALS: BP 118/77
[2018-09-21] MEDS ORDERED: WARFARIN SODIUM 3MG TABLET PO NR (18:00)
[2018-09-25] MEDS ORDERED: ISOS30TA6 PO (21:19)
== END 2018-09-21 18:25 | disposition home or self-care (01) | DRG 201 ==
LOC: ER 15:27 → 5WST 18:16 → EDBEDREQ 18:39 → ENRESERV 20:47
PROVIDERS: ADMIT Internal Medicine; ATTEND Internal Medicine
DX: I48.1 Persistent atrial fibrillation (principal); J96.00 Acute respiratory failure, unspecified whether with hypoxia or hypercapnia; I50.33 Acute on chronic diastolic (congestive) heart failure; E44.0 Moderate protein-calorie malnutrition; D68.9 Coagulation defect, unspecified; I27.20 Pulmonary hypertension, unspecified; I08.1 Rheumatic disorders of both mitral and tricuspid valves; J45.901 Unspecified asthma with (acute) exacerbation; I48.92 Unspecified atrial flutter; I48.2 Chronic atrial fibrillation; I11.0 Hypertensive heart disease with heart failure; D64.9 Anemia, unspecified; E78.5 Hyperlipidemia, unspecified; E87.6 Hypokalemia; F12.90 Cannabis use, unspecified, uncomplicated; Z79.01 Long term (current) use of anticoagulants; Z98.891 History of uterine scar from previous surgery; Z88.6 Allergy status to analgesic agent; Z88.1 Allergy status to other antibiotic agents; Z88.8 Allergy status to other drugs, medicaments and biological substances; Z79.82 Long term (current) use of aspirin; Z79.899 Other long term (current) drug therapy; Z68.28 Body mass index [BMI] 28.0-28.9, adult
CPT/HCPCS: 36415; 71045; 80048; 80305; 82962; 83735; 83880; 84443; 84484; 84703; 93005; 93306; 94640; 96365; 96366; 96375; 99285; C1893; J0696; J1160; J1940; J2920; J2930; J3490; J7611; J7620; J7626

== ENCOUNTER 2019-01-03 22:34 | Emergency (ER) | payer MEDICAID ==
[~2019-01-03] VITALS: Ht 167.6 cm; Wt 69.0 kg
[~2019-01-03 22:34] MED LIST changes: +ALBU18HF2 IH; -ALBU6.7H IH; -ASPI-1159 PO; -ATOR10TA PO; +ATOR40TA70 PO; -DIGO125T82 PO; +DILT60TA35 PO; +FLUT1AER IH; +FURO40TA5 PO; -HYDR-3927 PO; +ISOS30TA6 PO; +NITR0.4T49 SL; +PANT40TA4 PO; -[UNRECOGNIZED DRUG - CODE] PO
[2019-01-04] MEDS ORDERED: MORPHINE SULFATE 4 MG/ML CPJ (NOT FOR IM USE) IV STA (00:18)
[2019-01-04] MEDS ORDERED: SODIUM CHLORIDE 0.9% 500 ML IV ONE (00:18)
[2019-01-04] MEDS ORDERED: ONDANSETRON HCL 4MG/2ML INJ IV STA (00:18)
[2019-01-04] MEDS ORDERED: ACETAMINOPHEN 500MG TABLET PO ONE (00:45)
[2019-01-04 02:16] LABS: HEMATOCRIT. 41.3 % (36.0-48.0); HEMOGLOBIN. 13.4 g/dL (12.0-16.0); MEAN CORPUSCULAR HEMOGLOBIN 23.8 pg (28.0-32.0); MEAN CORPUSCULAR VOLUME 73.7 fL (81.0-99.0); MEAN PLATELET VOLUME 8.8 fl (7.4-10.4); PLATELET 252 x1000/uL (130-400); RED BLOOD CELL COUNT 5.61 mill/uL (4.2-5.4); RED CELL DISTRIBUTION WIDTH 24.8 % (11.6-14.6)
[2019-01-04 02:21] LABS: CHLORIDE 100 mEq/L (98-107)
[2019-01-04 02:27] LABS: PROTHROMBIN TIME 42.9 sec (9.6-11.0)
[2019-01-04 02:47] LABS: INR 4.5
[2019-01-04 04:18] VITALS: BP 117/67
[2019-01-04 04:37] LABS: ATYPICAL LYMPHOCYTES 1
[2019-01-04 04:38] LABS: PLATELET ESTIMATE NORMAL
== END 2019-01-04 04:18 | disposition home or self-care (01) ==
LOC: ER 22:34
DX: R10.84 Generalized abdominal pain (principal); R16.0 Hepatomegaly, not elsewhere classified; I48.91 Unspecified atrial fibrillation; I50.9 Heart failure, unspecified; I05.9 Rheumatic mitral valve disease, unspecified; Z98.890 Other specified postprocedural states; Z88.5 Allergy status to narcotic agent; Z88.0 Allergy status to penicillin; Z79.01 Long term (current) use of anticoagulants
CPT/HCPCS: 36415; 74176; 76705; 80053; 83690; 85025; 85610; 93005; 96361; 96374; 99284; J2405; J7030

== ENCOUNTER 2019-01-21 16:01 | Emergency (ER) | payer MEDICAID ==
[~2019-01-21] VITALS: Ht 170.2 cm; Wt 72.0 kg
[2019-01-21] MEDS: ASPIRIN 81MG TABLET PO ONE (21:14)
[2019-01-21] MEDS: ALBUTEROL (0.083%) 2.5MG/3ML NEB HHN STA (21:47)
[2019-01-21 23:06] LABS: BASOPHILS % 1.5 % (0.0-2.0); EOSINOPHILS % 1.2 % (0.0-5.0); HEMATOCRIT. 34.5 % (36.0-48.0); LYMPHOCYTES % 33.4 % (20.0-50.0); MEAN CORPUSCULAR HEMOGLOBIN 24.4 pg (28.0-32.0); MEAN CORPUSCULAR VOLUME 76.3 fL (81.0-99.0); MEAN PLATELET VOLUME 8.8 fl (7.4-10.4); MONOCYTES % 8.9 % (2.0-8.0); PLATELET 191 x1000/uL (130-400); RED BLOOD CELL COUNT 4.52 mill/uL (4.2-5.4); RED CELL DISTRIBUTION WIDTH 25.3 % (11.6-14.6)
[2019-01-21 23:10] LABS: CHLORIDE 108 mEq/L (98-107)
[2019-01-21 23:16] LABS: D-DIMER 0.2 mg/L FEU (<0.50); INR 2.8
[2019-01-21 23:17] LABS: PLATELET ESTIMATE NORMAL
[2019-01-21] MEDS: POTASSIUM CHLORIDE 20MEQ TABLET SR PO ONE (23:53)
[2019-01-22] MEDS ORDERED: IPRATROPIUM/ALBUTEROL 0.5-3(2.5)MG/3ML NEB NEB PRN
[2019-01-22] MEDS ORDERED: ACETAMINOPHEN 325MG TABLET PO PRN
[2019-01-22] MEDS ORDERED: ONDANSETRON HCL 4MG/2ML INJ IV PRN
[2019-01-22] MEDS ORDERED: CLONIDINE 0.1MG TABLET PO PRN
[2019-01-22 02:39] VITALS: BP 116/47
== END 2019-01-22 02:50 | disposition short-term general hospital (02) ==
LOC: ER 16:01 → CANBEDREQ 23:57 → ER 01-22 02:50
DX: R06.02 Shortness of breath (principal); I50.9 Heart failure, unspecified; J45.909 Unspecified asthma, uncomplicated; I48.91 Unspecified atrial fibrillation; Z98.890 Other specified postprocedural states; Z88.8 Allergy status to other drugs, medicaments and biological substances; Z88.1 Allergy status to other antibiotic agents; Z79.899 Other long term (current) drug therapy; Z91.018 Allergy to other foods; Z88.5 Allergy status to narcotic agent
CPT/HCPCS: 36415; 71045; 80053; 83880; 84484; 85025; 85379; 85610; 85730; 93005; 94640; 99285; C1893; J7611; Z7610

== ENCOUNTER 2021-02-28 10:08 | Inpatient (IN) | payer MEDICAID ==
[~2021-02-28] VITALS: Ht 167.6 cm; Wt 75.0 kg
[~2021-02-28 10:08] MED LIST changes: -ISOS30TA6 PO; +ISOS30TA91 PO; -PANT40TA4 PO; +PANT40TA51 PO
[2021-02-28] MEDS ORDERED: ASPIRIN 81MG TABLET PO ONE (12:15)
[2021-02-28 13:21] LABS: EOSINOPHILS % 1.7 % (0.0-5.0); HEMATOCRIT. 42.5 % (36.0-48.0); HEMOGLOBIN. 13.7 g/dL (12.0-16.0); LYMPHOCYTES % 29.9 % (20.0-50.0); MEAN CORPUSCULAR HEMOGLOBIN 27.6 pg (28.0-32.0); MEAN CORPUSCULAR VOLUME 85.7 fL (81.0-99.0); MEAN PLATELET VOLUME 8.4 fl (7.4-10.4); MONOCYTES % 11.1 % (2.0-8.0); NEUTROPHILS % 56.3 % (40.0-76.0); PLATELET 168 x1000/uL (130-400); RED BLOOD CELL COUNT 4.95 mill/uL (4.2-5.4); RED CELL DISTRIBUTION WIDTH 17.1 % (11.6-14.6)
[2021-02-28 13:27] LABS: CHLORIDE 107 mEq/L (98-107)
[2021-02-28] MEDS ORDERED: FUROSEMIDE 40MG/4ML VIAL IVP ONE (14:30)
[2021-02-28 14:53] LABS: INR 1.9; PARTIAL THROMBOPLASTIN TIME 35.8 sec (23.4-31.0); PROTHROMBIN TIME 19.3 sec (9.6-11.0)
[2021-02-28] MEDS ORDERED: DOCUSATE SODIUM 100MG CAPSULE PO PRN (17:45)
[2021-02-28] MEDS ORDERED: CLONIDINE 0.1MG TABLET PO PRN (17:45)
[2021-02-28] MEDS ORDERED: ONDANSETRON HCL 4MG/2ML INJ IV PRN (17:45)
[2021-02-28] MEDS ORDERED: ACETAMINOPHEN 325MG TABLET PO PRN (17:45)
[2021-02-28] MEDS ORDERED: MAGNESIUM/ALUMINUM HYDROXIDE/SIMETHICONE 30ML UDC PO PRN (17:45)
[2021-02-28] MEDS ORDERED: GUAIFENESIN 200MG/10ML SUGAR FREE UDC PO PRN (17:45)
[2021-02-28] MEDS ORDERED: ENOXAPARIN 40MG/0.4ML SYR SUBCUT SCH (17:45)
[2021-02-28] MEDS ORDERED: WARFARIN SODIUM 5MG TABLET PO SCH (18:00)
[2021-02-28 20:00] VITALS: BP 125/65
[2021-02-28 20:55] VITALS: BP 125/65
[2021-03-01] VITALS: BP 111/78
[2021-03-01 04:00] VITALS: BP 111/69
[2021-03-01 06:24] LABS: HEMATOCRIT. 37.8 % (36.0-48.0); HEMOGLOBIN. 12.4 g/dL (12.0-16.0); MEAN CORPUSCULAR VOLUME 85.5 fL (81.0-99.0); MEAN PLATELET VOLUME 8.6 fl (7.4-10.4); PLATELET 150 x1000/uL (130-400); RED BLOOD CELL COUNT 4.42 mill/uL (4.2-5.4); RED CELL DISTRIBUTION WIDTH 17.1 % (11.6-14.6)
[2021-03-01 06:34] LABS: CHLORIDE 106 mEq/L (98-107)
[2021-03-01 06:43] LABS: INR 1.9; PROTHROMBIN TIME 19.6 sec (9.6-11.0)
[2021-03-01 08:00] VITALS: BP 124/79
[2021-03-01] MEDS ORDERED: FUROSEMIDE 40MG/4ML VIAL IV SCH (09:00)
[2021-03-01 11:45] VITALS: BP 114/73
[2021-03-01 11:56] LABS: PLATELET ESTIMATE NORMAL
[2021-03-01 12:00] VITALS: BP 114/73
[2021-03-01] MEDS ORDERED: WARFARIN SODIUM 5MG TABLET PO SCH (18:00)
== END 2021-03-01 15:30 | disposition home or self-care (01) | DRG 194 ==
LOC: ER 10:08 → 7EST 16:06 → EDBEDREQ 17:23 → EDBEDREQTM 17:23 → ENRESERV 19:14
PROVIDERS: ADMIT Hospitalist; ATTEND Hospitalist
DX: I11.0 Hypertensive heart disease with heart failure (principal); Z79.01 Long term (current) use of anticoagulants; I48.91 Unspecified atrial fibrillation; I50.33 Acute on chronic diastolic (congestive) heart failure; J45.909 Unspecified asthma, uncomplicated; Z91.81 History of falling; Z88.1 Allergy status to other antibiotic agents; Z88.8 Allergy status to other drugs, medicaments and biological substances; Z88.5 Allergy status to narcotic agent; Z91.041 Radiographic dye allergy status; Z91.018 Allergy to other foods; Z79.899 Other long term (current) drug therapy; Z98.891 History of uterine scar from previous surgery
CPT/HCPCS: 36415; 71045; 73030; 80053; 83880; 84484; 85025; 93005; 93306; 93970; 99285; J1940